=== PATIENT | male | born 1995 | race Caucasian/White ===

== ENCOUNTER 2017-12-15 10:48 | Emergency (ER) | payer OTHER ==
--- OUTSIDE RECORDS SUMMARY | 2017-12-15 11:13 | XMS REPORT ---
:1995 Author Organization [facility] Address [address] [place] [address] Care Team Providers Name Role Phone UNKNOWN, REFFERING Primary Care Provider Unavailable KRYSTIAN TIJERINA Unavailable Unavailable Problems This patient has no known problems. Allergies, Adverse Reactions, Alerts This patient has no known allergies or adverse reactions. Medications This patient has no known medications. Results Test Description Test Time Test Comments Text Results Atomic Results Result Comments Comprehensive Metabolic Panel 2017-02-08 22:10:00 Test Item Value Reference Range Comments Sodium (test code=NA) 141 mmol/L 135-145 Potassium (test code=K) 4.1 mmol/L 3.5-5.1 Chloride (test code=CL) 103 mmol/L 98-105 Carbon Dioxide (test 26 mmol/L 22-29 code=CO2) Glucose (test code=GLU) 97 mg/dL 70-115 Blood Urea Nitrogen (test 8 mg/dL 6-20 code=BUN) Creatinine (test code=CREAT) 0.9 mg/dL 0.7-1.2 Calcium (test code=CA) 9.4 mg/dL 8.3-10.5 Prot Total (test code=TP) 7.2 g/dL 6.4-8.3 Albumin (test code=ALB) 4.5 g/dL 3.5-5.2 A/G Ratio (test 1.7 Ratio code=AGRATIO) Globulin (test code=GLOB) 2.7 2.9-3.1 Bili Total (test code=TBIL) 0.3 mg/dL 0.1-0.9 Alk Phos (test code=APHOS) 79 U/L 40-129 AST (test code=AST) 16 U/L 1-40 ALT (test code=ALT) 9 U/L 1-41 BUN/Creatinine Ratio (test 8.9 code=BCRATIO) Anion Gap (test code=AGAP) 12 mmol/L 7-16 Estimated GFR (test >60 mL/min/1.73m2 eGFR (estimated Glomerular code=GFR) Filtration Rate) is an estimated value,calculated from the patient's serum creatinine using the MDRD equation.It is NOT the patient's actual GFR. The eGFR provides a more clinicallyuseful measure of kidney disease than serum creatinine alone.This calculation takes sex and race into account, if the informationis provided. If the race is not provided, and the patient isAfrican-Greek, multiply by 1.212. If sex is not provided, and thepatient is female, multiply by 0.742. Results for patients <18 years ofage have not been validated by the MDRD study and should be interpretedwith caution.eGFR Result Interpretation:eGFR > or=60 is in the Normal RangeeGFR < 60 may mean kidney diseaseeGFR < 15 may mean kidney failureRanges recommended by the National Kidney Foundation,http://nkdep.nih.go v [id number] 22:02:00 Test Item Value Reference Range Comments Amphetamine (test code=AMPH) Negative Negative For diagnostic purposes only, positive results should always be assessedin conjunctionwith the patient's medical history,clinical examination and otherfindings.To fulfill legal requirements, a more specific alternate chemical methodmust be used inorder to obtain a Confirmed analytical result. GC/MS is the preferred confirmatory method. Barbiturates (test code=LOKESH) Negative Negative Benzodiazepine (test Negative Negative code=CAROL) Cocaine (test code=COCA) Negative Negative Methadone (test code=MTHD) Negative Negative Opiates (test code=OPIA) Negative Negative PCP (test code=PCP) Negative Negative Propoxyphene (test Negative Negative code=PROPOX) THC (test code=THC) POSITIVE Negative Alcohol, Urine (test <0.01 g/dL 0.00-0.01 code=ETOHU) Urinalysis [id number] 21:45:00 Test Item Value Reference Range Comments Color (test code=COLOR) Yellow Yellow,Straw,Pl yellow Clarity (test code=CLAR) Clear Clear Specific [place] (test code=SPGR) 1.012 1.001-1.035 pH (test code=PH) 5.0 5.0-9.0 Ketone (test code=KET) Negative mg/dL Negative Glucose (test code=GLUCUR) Negative mg/dL Negative Protein (test code=PROT) Negative mg/dL Negative Bilirubin (test code=BILI) Negative mg/dL Negative Occult Blood (test code=UDOB) Negative Negative Urobilinogen (test code=UROB) 0.2 mg/dL 0.2-1.0 Nitrite (test code=NIT) Negative Negative Leuk Esterase (test code=LEUK) Negative Negative Micros Exam (test code=MEXAM) Not indicated CBC with [id number] 21:44:00 Test Item Value Reference Range Comments WBC (test code=WBC) 8.2 K/cumm 4.4-10.5 RBC (test code=RBC) 5.37 M/cumm 4.10-5.70 Hemoglobin (test code=HGB) 15.3 gm/dL 13.4-17.4 Hematocrit (test code=HCT) 45.6 % 38.7-52.0 MCV (test code=MCV) 85.0 fL 80-100 MCH (test code=MCH) 28.6 pg 27.0-32.5 MCHC (test code=MCHC) 33.6 g/dL 32.0-37.5 RDW (test code=RDW) 13.5 % 11.5-14.5 Platelet Count (test code=PLTCT) 182 K/cumm 140-440 MPV (test code=MPV) 8.1 fL Diff Method (test code=DIFFM) Auto Neutrophil (test code=NEUT) 77.4 % 36-70 Lymphocyte (test code=LYMPH) 13.7 % 12-44 Monocyte (test code=MONO) 7.4 % 0-11 Eosinophil (test code=EOS) 1.1 % 0-7 Basophil (test code=BASO) 0.4 % 0-2 Neutro Abs (test code=ANEUT) 6.4 K/cumm 1.6-7.4 Lymph Abs (test code=ALYMPH) 1.1 K/cumm 0.5-4.6 [place] Abs (test code=AMONO) 0.6 K/cumm 0.0-1.2 Eos Abs (test code=AEOS) 0.09 K/cumm 0.00-0.74 Baso Abs (test code=ABASO) 0.0 K/cumm 0.00-0.21
[2017-12-15 11:50] LABS: Absolute Lymphocytes (CBC) 0.5 K/uL (0.7-4.9); Absolute Monocytes 0.5 K/uL (0.1-1.3); Absolute Neutrophil 4.4 K/uL (1.8-8.0); Basophils % 0.6 % (0-1.3); Eosinophils % 1.2 % (0-4.4); Hematocrit 47.7 % (39.6-49.0); MCV 84.9 fL (80-100); MPV 9.3 fL (7.6-11.3); Monocytes % 9.7 % (3.3-12.3); RBC Red Blood Cell Count 5.62 M/uL (4.33-5.43)
[2017-12-15 12:09] LABS: Potassium 4.1 mmol/L (3.5-5.1)
--- NOTE | 2017-12-15 12:35 | RAD REPORT ---
EXAM DESCRIPTION: RAD - Chest Pa And Lat (2 Views) - 12/15/2017 12:28 pm CLINICAL HISTORY: MALAISE Asthma, smoker COMPARISON: Chest Pa And Lat (2 Views) dated 08/11/2016 FINDINGS: The lungs are clear. The heart is normal in size. No displaced fractures. IMPRESSION: No acute or concerning finding suspected.
--- NOTE | 2017-12-15 12:40 | RAD REPORT ---
EXAM DESCRIPTION: RAD - Abdomen Single View - 12/15/2017 12:30 pm CLINICAL HISTORY: ABD PAIN Pain COMPARISON: No comparisons FINDINGS: The bowel gas pattern is non-obstructive. No evidence of free air or pneumatosis. No suspi cious calcifications. No significant bony findings. IMPRESSION: Negative examination.
--- NOTE | 2017-12-15 12:42 | EDPHYS ---
Physician Documentation [facility] Name: Tomás Joseph Age: 22 yrs Sex: Male : 1995 Arrival Date: 12/15/2017 Time: 10:52 Bed 11 Private MD: Macho Lance ED Physician Volodymyr Bear HPI: 12/15 12:33 This 22 yrs old Male presents to ER via Wheelchair with complaints of Pain gs All Over. 12:33 Onset: The symptoms/episode began/occurred yesterday. Modifying factors: there are no gs obvious modifying factors. Associated signs and symptoms: Pertinent positives: arthralgias, chills, myalgias. Severity of symptoms: At their worst the symptoms were moderate in the emergency department the symptoms are unchanged. The patient has experienced similar episodes in the past, a few times. The patient has not recently seen a physician. Historical: - Allergies: 11:05 No Known Allergies; sv - Home Meds: 11:05 None [Active]; sv - PMHx: 11:05 Anxiety; Asthma; Bipolar disorder; Depression; sv - PSHx: 11:05 None; sv - Immunization history:: Adult Immunizations up to date. - Social history:: Smoking status: Patient uses tobacco products, smokes one-half pack cigarettes per day, Patient/guardian denies using alcohol, street drugs. - Ebola Screening: : No symptoms or risks identified at this time. ROS: 12:33 All other systems are negative. gs Exam: 12:33 Head/Face: Normocephalic, atraumatic. Eyes: Pupils equal round and reactive to light, gs extra-ocular motions intact. Lids and lashes normal. Conjunctiva and sclera are non-icteric and not injected. Cornea within normal limits. Periorbital areas with no swelling, redness, or edema. ENT: Nares patent. No nasal discharge, no septal abnormalities noted. Tympanic membranes are normal and external auditory canals are clear. Oropharynx with no redness, swelling, or masses, exudates, or evidence of obstruction, uvula midline. Mucous membranes moist. Neck: Trachea midline, no thyromegaly or masses palpated, and no cervical lymphadenopathy. Supple, full range of motion without nuchal rigidity, or vertebral point tenderness. No Meningismus. Cardiovascular: Regular rate and rhythm with a normal S1 and S2. No gallops, murmurs, or rubs. Normal PMI, no JVD. No pulse deficits. Respiratory: Lungs have equal breath sounds bilaterally, clear to auscultation and percussion. No rales, rhonchi or wheezes noted. No increased work of breathing, no retractions or nasal flaring. Abdomen/GI: Soft, non-tender, with normal bowel sounds. No distension or tympany. No guarding or rebound. No evidence of tenderness throughout. Back: No spinal tenderness. No costovertebral tenderness. Full range of motion. Skin: Warm, dry with normal turgor. Normal color with no rashes, no lesions, and no evidence of cellulitis. MS/ Extremity: Pulses equal, no cyanosis. Neurovascular intact. Full, normal range of motion. Neuro: Awake and alert, GCS 15, oriented to person, place, time, and situation. Cranial nerves II-XII grossly intact. Motor strength 5/5 in all extremities. Sensory grossly intact. Cerebellar exam normal. Normal gait. 12:33 Constitutional: The patient appears alert, awake. 12:33 Chest/axilla: Palpation: tenderness, that is mild, of the diaphragm, that partially reproduces the patient's complaints. Vital Signs: 10:56 BP 108 / 61; Pulse 81; Resp 18; Temp 99.5; Pulse Ox 97% ; Weight 61.23 kg; Height 5 ft. sv 8 in. (172.72 cm); Pain 7/10; 13:15 BP 109 / 79; Pulse 81; Resp 17; Temp 98.4; Pulse Ox 99% on R/A; aj 10:56 Body Mass Index 20.53 (61.23 kg, 172.72 cm) sv MDM: 11:17 Patient medically screened. 12:33 Differential diagnosis: viral Infection, bacterial infection, URI. Data reviewed: vital gs signs, nurses notes. Response to treatment: the patient's symptoms have markedly improved after treatment, and as a result, I will discharge patient. 12/15 11:25 Order name: CBC with Diff; Complete Time: 12:17 12/15 11:25 Order name: Basic Metabolic Panel; Complete Time: 12:17 12/15 11:25 Order name: CPK; Complete Time: 12:17 12/15 11:25 Order name: XRAY Chest Pa And Lat (2 Views); Complete Time: 12:40 12/15 11:25 Order name: Abdomen 1 View XRAY; Complete Time: 12:43 12/15 11:26 Order name: Flu; Complete Time: 12:17 Administered Medications: No medications were administered Disposition: 12/15/17 12:42 Discharged to Home. Impression: Upper abdominal pain, unspecified. - Condition is Stable. - Discharge Instructions: Abdominal Pain, Adult. - Prescriptions for Miralax 17 gram/dose Oral - take 1 packet by ORAL route once daily dilute powder in 8 ounces of water or juice; 1 bottle. Naprosyn 500 mg Oral Tablet - take 1 tablet by ORAL route 2 times per day As needed take with food; 30 tablet. - Work release form, Medication Reconciliation Form, Thank You Letter, Antibiotic Education, Prescription Opioid Use form. - Follow up: Emergency Department; When: 2 - 3 days; Reason: Re-evaluation by your physician. Signatures: Dispatcher [employer] EDGenesis Solis RN RN sv Myers, Amanda, RN RN aj Starr, Gregory, MD MD Corrections: (The following items were deleted from the chart) 13:17 12:42 12/15/2017 12:42 Discharged to Home. Impression: Upper abdominal pain, aj unspecified. Condition is Stable. Forms are Work release form, Medication Reconciliation Form, Thank You Letter, Antibiotic Education, Prescription Opioid Use. Follow up: Emergency Department; When: 2 - 3 days; Reason: Re-evaluation by your physician.
--- NOTE | 2017-12-15 12:42 | ER ---
Nurse's Notes [facility] Name: Tomás Joseph Age: 22 yrs Sex: Male : 1995 Arrival Date: 12/15/2017 Time: 10:52 Bed 11 Private MD: Macho Lance Diagnosis: Upper abdominal pain, unspecified Presentation: 12/15 10:56 Presenting complaint: Patient states: back pain and now has radiated to the bottom of sv both ribs, left leg and BUE that started a few days ago. Denies any injury. Transition of care: patient was not received from another setting of care. Onset of symptoms was December 12, 2017. Care prior to arrival: None. 10:56 Method Of Arrival: Wheelchair sv 10:56 Acuity: NIGEL 4 sv 13:16 Risk Assessment: Do you want to hurt yourself or someone else? Patient reports no aj desire to harm self or others. Initial Sepsis Screen: Does the patient meet any 2 criteria? No. Patient's initial sepsis screen is negative. Does the patient have a suspected source of infection? No. Patient's initial sepsis screen is negative. Historical: - Allergies: 11:05 No Known Allergies; sv - Home Meds: 11:05 None [Active]; sv - PMHx: 11:05 Anxiety; Asthma; Bipolar disorder; Depression; sv - PSHx: 11:05 None; sv - Immunization history:: Adult Immunizations up to date. - Social history:: Smoking status: Patient uses tobacco products, smokes one-half pack cigarettes per day, Patient/guardian denies using alcohol, street drugs. - Ebola Screening: : No symptoms or risks identified at this time. Screenin:40 Abuse screen: Denies threats or abuse. Denies injuries from another. Nutritional aj screening: No deficits noted. Tuberculosis screening: No symptoms or risk factors identified. Fall Risk None identified. Assessment: 11:37 General: Appears in no apparent distress. comfortable, Behavior is calm, cooperative. aj Pain: Complains of pain in back, chest, right arm, left arm, right leg and left leg. Neuro: Level of Consciousness is awake, alert, obeys commands, Oriented to person, place, time, situation, Appropriate for age. Respiratory: Airway is patent Respiratory effort is even, unlabored, Respiratory pattern is regular, symmetrical. Derm: Skin is intact, is healthy with good turgor, Skin is pink, warm \T\ dry. normal. Musculoskeletal: Circulation, motion, and sensation intact. Reports pain in back, chest, right arm, left arm, right leg and left leg. Vital Signs: 10:56 BP 108 / 61; Pulse 81; Resp 18; Temp 99.5; Pulse Ox 97% ; Weight 61.23 kg; Height 5 ft. sv 8 in. (172.72 cm); Pain 7/10; 13:15 BP 109 / 79; Pulse 81; Resp 17; Temp 98.4; Pulse Ox 99% on R/A; aj 10:56 Body Mass Index 20.53 (61.23 kg, 172.72 cm) sv ED Course: 10:52 Patient arrived in ED. rg4 10:52 Macho Lance DO is Private Physician. rg4 10:56 Arm band placed on right wrist. sv 11:04 Samira Bach RN is Primary Nurse. aj 11:05 Triage completed. sv 11:07 Volodymyr Bear MD is Attending Physician. gs 11:40 Patient has correct armband on for positive identification. aj 11:40 Initial lab(s) drawn, by me, sent to lab. aj 12:15 Patient moved to radiology via wheelchair. jb2 12:27 X-ray completed. Patient tolerated procedure well. jb2 12:28 Patient moved back from radiology. jb2 12:28 XRAY Chest Pa And Lat (2 Views) In Process Unspecified. EDMS 12:28 Abdomen 1 View XRAY In Process Unspecified. EDMS 13:16 No provider procedures requiring assistance completed. Patient did not have IV access aj during this emergency room visit. Administered Medications: No medications were administered Outcome: 12:42 Discharge ordered by . gs 13:16 Discharged to home ambulatory, with family. aj 13:16 Condition: good 13:16 Discharge instructions given to patient, family, Instructed on discharge instructions, follow up and referral plans. medication usage, Demonstrated understanding of instructions, follow-up care, medications, Prescriptions given X 2. 13:17 Patient left the ED. aj Signatures: Dispatcher [employer] EDGenesis Solis RN RN Samira Bach RN RN aj Buechter, Jesse jb2 Jordyn Christiansen rg4 Volodymyr Bear MD MD Corrections: (The following items were deleted from the chart) 11:05 10:56 Presenting complaint: Patient states: back pain and now has radiated to the sv bottom of both ribs, left leg and BUE that started a few days ago. 12:06 12:06 X-ray completed. Portable x-ray completed in exam room. Patient tolerated jb2 procedure well. jb2
== END 2017-12-15 13:17 | disposition home or self-care (01) ==
LOC: ER 10:48
DX: R10.10 Upper abdominal pain, unspecified (principal); J45.909 Unspecified asthma, uncomplicated; F17.210 Nicotine dependence, cigarettes, uncomplicated
CPT/HCPCS: 36415; 71046; 74018; 80048; 82550; 85025; 87804; 99283

== ENCOUNTER 2018-03-30 22:37 | Emergency (ER) | payer OTHER ==
--- OUTSIDE RECORDS SUMMARY | 2018-03-30 22:38 | XMS REPORT ---
:1995 [facility] Address [address] [place] [address] Care Team Providers Name Role Phone UNKNOWN, [...] race is not provided, and the patient isAfrican-Afghan, multiply by 1.212. If sex is not provided, and thepatient is female, multiply by 0.742. Results for patients <18 years ofage have not been validated by the MDRD study and should be interpretedwith caution.eGFR Result Interpretation:eGFR > or=60 is in the Normal RangeeGFR < 60 may mean kidney diseaseeGFR < 15 may mean kidney failureRanges recommended by the National Kidney Foundation,http://nkdep.nih.go v [id number] 22:02:00 Test Item Value Reference Range Comments [...] Urine (test <0.01 g/dL 0.00-0.01 code=ETOHU) Urinalysis [id number] 21:45:00 Test Item Value Reference Range Comments Color (test code=COLOR) Yellow Yellow,Straw,Pl yellow Clarity (test code=CLAR) Clear Clear Specific [place] (test code=SPGR) 1.012 1.001-1.035 pH (test code=PH) [...] Exam (test code=MEXAM) Not indicated CBC with [id number] 21:44:00 Test Item Value Reference Range Comments [...] Lymph Abs (test code=ALYMPH) 1.1 K/cumm 0.5-4.6 [place] Abs (test code=AMONO) 0.6 K/cumm 0.0-1.2 Eos Abs (test code=AEOS) 0.09 K/cumm 0.00-0.74 Baso Abs (test code=ABASO) 0.0 K/cumm 0.00-0.21
--- NOTE | 2018-03-31 00:49 | EDPHYS ---
Physician Documentation [facility] Name: Tomás Joseph Age: 22 yrs Sex: Male : 1995 Arrival Date: 03/30/2018 Time: 22:37 Bed 17 Private MD: ED Physician Latrell Moran HPI: 03/30 23:52 This 22 yrs old Male presents to ER via Ambulatory with complaints of back of rn head pain. 23:52 The patient complains of pain to the occiput. The patient describes the headache as rn "popping". Onset: The symptoms/episode began/occurred 1 hour(s) ago. Associated signs and symptoms: The patient has no apparent associated signs or symptoms, Pertinent negatives: altered mental status, fever, neck stiffness, paresthesias, Photophobia rash, vision changes, vision loss, vomiting, weakness, vertigo. Severity of symptoms: At its worst the pain was mild, in the emergency department the pain is unchanged. The symptoms are alleviated by nothing. the symptoms are aggravated by movement. The patient has experienced similar episodes in the past. Reports gets intermittent "popping" of head, feels deep, worse with turning head quickly, not in neck, no LOC/vomiting/fever. No recent trauma. NO seizure. Reports pain a little worse today and got pain twice in succession, read online of what it could be, got scared and came in. No focal neurological complaints. . Historical: - Allergies: 22:59 No Known Allergies; sr5 - Home Meds: 22:59 None [Active]; sr5 - PMHx: 22:59 Anxiety; Asthma; Bipolar disorder; Depression; sr5 - PSHx: 22:59 None; sr5 - Immunization history:: Adult Immunizations unknown. - Social history:: Smoking status: Patient uses tobacco products, denies chronic smoking, but will smoke occasionally. - Family history:: not pertinent. - Ebola Screening: : No symptoms or risks identified at this time. - Hospitalizations: : No recent hospitalization is reported. ROS: 23:52 Constitutional: Negative for fever, chills, and weight loss, Eyes: Negative for injury, rn pain, redness, and discharge, Neck: Negative for injury, pain, and swelling, Cardiovascular: Negative for chest pain, palpitations, and edema, Respiratory: Negative for shortness of breath, cough, wheezing, and pleuritic chest pain, Abdomen/GI: Negative for abdominal pain, nausea, vomiting, diarrhea, and constipation, MS/Extremity: Negative for injury and deformity, Skin: Negative for injury, rash, and discoloration, Neuro: Negative for weakness, numbness, tingling, and seizure. Exam: 23:52 Constitutional: This is a well developed, well nourished patient who is awake, alert, rn and in no acute distress. Head/Face: Normocephalic, atraumatic. Eyes: Pupils equal round and reactive to light, extra-ocular motions intact. Lids and lashes normal. Conjunctiva and sclera are non-icteric and not injected. Cornea within normal limits. Periorbital areas with no swelling, redness, or edema. ENT: Nares patent. No nasal discharge, Mucous membranes moist. Neck: Trachea midline, no thyromegaly or masses palpated, and no cervical lymphadenopathy. Supple, full range of motion without nuchal rigidity, or vertebral point tenderness. No Meningismus. Skin: Warm, dry with normal turgor. Normal color with no rashes, no lesions, and no evidence of cellulitis. MS/ Extremity: Pulses equal, no cyanosis. Neurovascular intact. Full, normal range of motion. Equal circumference. Neuro: Awake and alert, GCS 15, oriented to person, place, time, and situation. Cranial nerves II-XII grossly intact. Motor strength 5/5 in all extremities. Sensory grossly intact. Cerebellar exam normal. Normal gait. Vital Signs: 22:59 BP 129 / 74; Pulse 84; Resp 16; Temp 97.9; Pulse Ox 100% ; Weight 59.42 kg; Height 5 sr5 ft. 8 in. (172.72 cm); Pain /10; 03/31 00:45 BP 123 / 65; Pulse 85; Resp 16 S; Pulse Ox 100% on R/A; cc3 03/30 22:59 Body Mass Index 19.92 (59.42 kg, 172.72 cm) sr5 [place] Coma Score: 00:47 Eye Response: spontaneous(4). Verbal Response: oriented(5). Motor Response: obeys rn commands(6). Total: 15. MDM: 03/30 23:01 Patient medically screened. rn 03/31 00:47 Differential diagnosis: migraine, tension headache, vasomotor headache. Data reviewed: rn vital signs, nurses notes, radiologic studies, CT scan, and as a result, I will discharge patient. Counseling: I had a detailed discussion with the patient and/or guardian regarding: the historical points, exam findings, and any diagnostic results supporting the discharge/admit diagnosis, radiology results, the need for outpatient follow up, to return to the emergency department if symptoms worsen or persist or if there are any questions or concerns that arise at home. Special discussion: I discussed with the patient/guardian in detail that at this point there is no indication for admission to the hospital. It is understood, however, that if the symptoms persist or worsen the patient needs to return immediately for re-evaluation. 03/30 23:06 Order name: CT Head Brain wo Cont rn Administered Medications: No medications were administered Disposition: 03/31/18 00:49 Discharged to Home. Impression: Headache. - Condition is Stable. - Discharge Instructions: General Headache Without Cause. - Medication Reconciliation Form, Thank You Letter, Antibiotic Education, Prescription Opioid Use form. - Follow up: Private Physician; When: As needed; Reason: Recheck today's complaints, Re-evaluation by your physician. - Problem is new. - Symptoms have improved. Signatures: Dispatcher [employer] EDLatrell Menjivar MD MD rn Resecker, Sam, RN RN sr5 Lisset Alexander cc3 Corrections: (The following items were deleted from the chart) 00:58 00:49 03/31/2018 00:49 Discharged to Home. Impression: Headache. Condition is Stable. cc3 Forms are Medication Reconciliation Form, Thank You Letter, Antibiotic Education, Prescription Opioid Use. Follow up: Private Physician; When: As needed; Reason: Recheck today's complaints, Re-evaluation by your physician. Problem is new. Symptoms have improved. rn
--- NOTE | 2018-03-31 00:49 | ER ---
Nurse's Notes [facility] Name: Tomás Joseph Age: 22 yrs Sex: Male : 1995 Arrival Date: 03/30/2018 Time: 22:37 Bed 17 Private MD: Diagnosis: Headache Presentation: 03/30 22:57 Presenting complaint: Patient states: pain LEFT base of skull, "this pain happens every sr5 now and then, but today it happened twice". Reports turning heads towards the LEFT makes pain worse. Pt denies trauma. Transition of care: patient was not received from another setting of care. Onset of symptoms was March 30, 2018. 22:57 Method Of Arrival: Ambulatory sr5 22:57 Acuity: NIGEL 4 sr5 23:10 Risk Assessment: Do you want to hurt yourself or someone else? Patient reports no cc3 desire to harm self or others. Initial Sepsis Screen: Does the patient meet any 2 criteria? No. Patient's initial sepsis screen is negative. Does the patient have a suspected source of infection? No. Patient's initial sepsis screen is negative. Care prior to arrival: None. Triage Assessment: 22:59 General: Appears uncomfortable, Behavior is cooperative, appropriate for age. Pain: sr5 Complains of pain in left posterior aspect of neck and left lateral aspect of neck Pain currently is 9 out of 10 on a pain scale. Neuro: No deficits noted. Cardiovascular: No deficits noted. Respiratory: No deficits noted. Musculoskeletal: Reports pain at base of LEFT skull, worse with movement. Historical: - Allergies: 22:59 No Known Allergies; sr5 - Home Meds: 22:59 None [Active]; sr5 - PMHx: 22:59 Anxiety; Asthma; Bipolar disorder; Depression; sr5 - PSHx: 22:59 None; sr5 - Immunization history:: Adult Immunizations unknown. - Social history:: Smoking status: Patient uses tobacco products, denies chronic smoking, but will smoke occasionally. - Family history:: not pertinent. - Ebola Screening: : No symptoms or risks identified at this time. - Hospitalizations: : No recent hospitalization is reported. Screenin:10 Abuse screen: Denies threats or abuse. Denies injuries from another. Nutritional cc3 screening: No deficits noted. Tuberculosis screening: No symptoms or risk factors identified. Fall Risk Ambulatory Aid- None/Bed Rest/Nurse Assist (0 pts). Gait- Normal/Bed Rest/Wheelchair (0 pts) Mental Status- Oriented to own ability (0 pts). Assessment: 23:10 General: see triage assessment. cc3 03/31 00:20 Reassessment: Patient appears in no apparent distress at this time. Patient and/or cc3 family updated on plan of care and expected duration. Pain level reassessed. Patient is alert, oriented x 3, equal unlabored respirations, skin warm/dry/pink. Patient came back from CT scan department. 01:00 Reassessment: Patient appears in no apparent distress at this time. Patient and/or cc3 family updated on plan of care and expected duration. Pain level reassessed. Patient is alert, oriented x 3, equal unlabored respirations, skin warm/dry/pink. Dr. Moran discharged home the patient, no prescription was given. No IV cannula in situ. Patient left ER vitally stable and ambulatory with his friend. Vital Signs: 03/30 22:59 BP 129 / 74; Pulse 84; Resp 16; Temp 97.9; Pulse Ox 100% ; Weight 59.42 kg; Height 5 sr5 ft. 8 in. (172.72 cm); Pain /; 03/31 00:45 BP 123 / 65; Pulse 85; Resp 16 S; Pulse Ox 100% on R/A; cc3 03/30 22:59 Body Mass Index 19.92 (59.42 kg, 172.72 cm) sr5 What Cheer Coma Score: 00:47 Eye Response: spontaneous(4). Verbal Response: oriented(5). Motor Response: obeys rn commands(6). Total: 15. ED Course: 03/30 22:37 Patient arrived in ED. am2 22:58 Triage completed. sr5 22:59 Arm band placed on. sr5 23:01 Latrell Moran MD is Attending Physician. rn 23:10 Lisset Alexander is Primary Nurse. cc3 23:10 Patient has correct armband on for positive identification. Bed in low position. Call cc3 light in reach. Side rails up X 1. 23:[address] via wheelchair. kw1 03/31 00:00 CT Head Brain wo Cont In Process Unspecified. EDMS 00:01 CT completed. Patient tolerated procedure well. Patient moved back from CT. kw1 01:00 No provider procedures requiring assistance completed. Patient did not have IV access cc3 during this emergency room visit. Administered Medications: No medications were administered Outcome: 00:49 Discharge ordered by . rn 00:58 Patient left the ED. cc3 01:00 Discharged to home ambulatory, with friend. cc3 01:00 Condition: stable 01:00 Discharge instructions given to patient, Instructed on discharge instructions, follow up and referral plans. Demonstrated understanding of instructions, follow-up care. Signatures: Dispatcher [employer] EDMS Latrell Moran MD MD rn Marlene, Volodymyr RN RN sr5 Samira Peña am2 Ayleen Patel kw1 Lisset Alexander cc3 Corrections: (The following items were deleted from the chart) 06:38 00:30 BP 123 / 65; Pulse 85bpm; Resp 16bpm; Spontaneous; Pulse Ox 100% RA; cc3 cc3
--- NOTE | 2018-03-31 08:30 | RAD REPORT ---
EXAM DESCRIPTION: CT - Head Brain Wo Cont - 03/31/2018 6:54 am CLINICAL HISTORY: Headache COMPARISON: January 2017 TECHNIQUE: Computed axial tomography of the head was obtained. IV contrast was not requested. Prelim inary report was generated by [employer] and reviewed prior to dictation All CT scans are performed using dose optimization technique as appropriate and may include automated exposure control or mA/KV adjustment according to patient size. FINDINGS: An intracranial bleed is not seen . The ventricles are normal in caliber. No extra-axial fluid collection is noted. Fluid within the sinuses/ mastoids is not seen. IMPRESSION: No acute intracranial abnormality is seen. If patient's symptoms persist MRI of the bra in would be recommended.
== END 2018-03-31 00:58 | disposition home or self-care (01) ==
LOC: ER 22:37
DX: R51 Headache (principal); Z72.0 Tobacco use
CPT/HCPCS: 70450; 99284

== ENCOUNTER 2018-05-01 02:10 | Emergency (ER) | payer OTHER ==
--- OUTSIDE RECORDS SUMMARY | 2018-05-01 02:13 | XMS REPORT ---
:1995 Author Organization [facility] Address [address] [place] [address] Care Team Providers Name Role Phone UNKNOWN, [...] race is not provided, and the patient isAfrican-Swazi, multiply by 1.212. If sex is not provided, and thepatient is female, multiply by 0.742. Results for patients <18 years ofage have not been validated by the MDRD study and should be interpretedwith caution.eGFR Result Interpretation:eGFR > or=60 is in the Normal RangeeGFR < 60 may mean kidney diseaseeGFR < 15 may mean kidney failureRanges recommended by the National Kidney Foundation,http://nkdep.nih.go v [id number] 22:02:00 Test Item Value Reference Range Comments [...] Urine (test <0.01 g/dL 0.00-0.01 code=ETOHU) Urinalysis [id number] 21:45:00 Test Item Value Reference Range Comments Color (test code=COLOR) Yellow Yellow,Straw,Pl yellow Clarity (test code=CLAR) Clear Clear Specific [place] (test code=SPGR) 1.012 1.001-1.035 pH (test code=PH) [...] Exam (test code=MEXAM) Not indicated CBC with [id number] 21:44:00 Test Item Value Reference Range Comments [...] Lymph Abs (test code=ALYMPH) 1.1 K/cumm 0.5-4.6 [place] Abs (test code=AMONO) 0.6 K/cumm 0.0-1.2 Eos Abs (test code=AEOS) 0.09 K/cumm 0.00-0.74 Baso Abs (test code=ABASO) 0.0 K/cumm 0.00-0.21
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
== END 2018-05-01 03:03 | disposition home or self-care (01) ==
LOC: ER 02:10
DX: Z13.30 Encounter for screening examination for mental health and behavioral disorders, unspecified (principal); F17.210 Nicotine dependence, cigarettes, uncomplicated; Z86.59 Personal history of other mental and behavioral disorders
CPT/HCPCS: 99283

== ENCOUNTER 2018-05-19 15:05 | Emergency (ER) | payer OTHER ==
--- OUTSIDE RECORDS SUMMARY | 2018-05-19 15:07 | XMS REPORT ---
:1995 Author [facility] Address [address] [place] [address] Care Team Providers Name Role Phone UNKNOWN, [...] race is not provided, and the patient isAfrican-Argentine, multiply by 1.212. If sex is not provided, and thepatient is female, multiply by 0.742. Results for patients <18 years ofage have not been validated by the MDRD study and should be interpretedwith caution.eGFR Result Interpretation:eGFR > or=60 is in the Normal RangeeGFR < 60 may mean kidney diseaseeGFR < 15 may mean kidney failureRanges recommended by the National Kidney Foundation,http://nkdep.nih.go v [id number] 22:02:00 Test Item Value Reference Range Comments [...] Urine (test <0.01 g/dL 0.00-0.01 code=ETOHU) Urinalysis [id number] 21:45:00 Test Item Value Reference Range Comments Color (test code=COLOR) Yellow Yellow,Straw,Pl yellow Clarity (test code=CLAR) Clear Clear Specific [place] (test code=SPGR) 1.012 1.001-1.035 pH (test code=PH) [...] Exam (test code=MEXAM) Not indicated CBC with [id number] 21:44:00 Test Item Value Reference Range Comments [...] Lymph Abs (test code=ALYMPH) 1.1 K/cumm 0.5-4.6 [place] Abs (test code=AMONO) 0.6 K/cumm 0.0-1.2 Eos Abs (test code=AEOS) 0.09 K/cumm 0.00-0.74 Baso Abs (test code=ABASO) 0.0 K/cumm 0.00-0.21
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
[2018-05-19] MEDS ORDERED: ONDANSETRON 4 MG (ODT) TAB ONE (16:42)
[2018-05-19] MEDS ORDERED: ACETAMINOPHEN 325 MG TABLET ONE (16:42)
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
--- NOTE | 2018-05-19 16:58 | ER ---
Nurse's Notes [facility] Name: Tomás Joseph Age: 22 yrs Sex: Male : 1995 Arrival Date: 05/19/2018 Time: 15:08 Bed 25 Private MD: None, None Diagnosis: Contusion of unspecified part of head;Acute pansinusitis-Right frontal, ethmoid and maxillary sinuses Presentation: 05/19 15:27 Presenting complaint: Patient states: yesterday at work got hit with a door on right iw jew, today had a headache across forehead, and he forgot people's names and wants to get checked, denies LOC yesterday. Transition of care: patient was not received from another setting of care. Onset of symptoms was May 19, 2018. Risk Assessment: Do you want to hurt yourself or someone else? Patient reports no desire to harm self or others. Initial Sepsis Screen: Does the patient meet any 2 criteria? No. Patient's initial sepsis screen is negative. Does the patient have a suspected source of infection? No. Patient's initial sepsis screen is negative. Care prior to arrival: None. 15:27 Method Of Arrival: Ambulatory iw 15:27 Acuity: NIGEL 4 iw Historical: - Allergies: 15:29 NKA; iw - Home Meds: 15:29 None [Active]; iw - PMHx: 15:29 Anxiety; Asthma; Bipolar disorder; Depression; iw - PSHx: 15:29 None; iw - Immunization history:: Adult Immunizations not up to date. - Social history:: Smoking status: Patient uses tobacco products. - Ebola Screening: : Patient negative for fever greater than or equal to 101.5 degrees Fahrenheit, and additional compatible Ebola Virus Disease symptoms Patient denies exposure to infectious person Patient denies travel to an Ebola-affected area in the 21 days before illness onset No symptoms or risks identified at this time. Screenin:30 Abuse screen: Denies threats or abuse. Denies injuries from another. Nutritional sg screening: No deficits noted. Tuberculosis screening: No symptoms or risk factors identified. Never had TB. Fall Risk None identified. Assessment: 16:30 General: Appears in no apparent distress. comfortable, well groomed, well developed, sg well nourished, Behavior is calm, cooperative, appropriate for age. Pain: Complains of pain in face Quality of pain is described as aching. Neuro: No deficits noted. Neuro: Level of Consciousness is awake, alert, obeys commands, Oriented to person, place, time, situation, [employer]mediary are equal bilaterally Moves all extremities. Full function Gait is steady, Speech is normal, Facial symmetry appears normal, Pupils are PERRLA. Cardiovascular: Capillary refill is brisk in bilateral fingers Patient's skin is warm and dry. Respiratory: Airway is patent Respiratory effort is even, unlabored, Respiratory pattern is regular, symmetrical. GI: No deficits noted. No signs and/or symptoms were reported involving the gastrointestinal system. : No signs and/or symptoms were reported regarding the genitourinary system. EENT: No signs and/or symptoms were reported regarding the EENT system. Derm: Skin is pink, warm \T\ dry. Musculoskeletal: No signs and/or symptoms reported regarding the musculoskeletal system. Vital Signs: 15:29 BP 125 / 67; Pulse 88; Resp 16; Temp 98.6; Pulse Ox 100% on R/A; Weight 58.97 kg; iw Height 5 ft. 8 in. (172.72 cm); Pain 6/10; 15:29 Body Mass Index 19.77 (58.97 kg, 172.72 cm) iw ED Course: 15:08 Patient arrived in ED. mr 15:09 None, None is Private Physician. mr 15:29 Triage completed. iw 15:29 Arm band placed on. iw 15:52 Jason Banks PA is PHCP. cp 15:52 Jason Mondragon MD is Attending Physician. cp 15:56 Reji Cook, RE is Primary Nurse. sg 16:20 No provider procedures requiring assistance completed. Patient did not have IV access sg during this emergency room visit. 16:[address] via wheelchair. nj 16:30 CT completed. Patient tolerated procedure well. Patient moved back from CT. nj 16:30 Patient has correct armband on for positive identification. Bed in low position. Call sg light in reach. Side rails up X2. Pulse ox on. NIBP on. Lights dimmed. Warm blanket given. Head of bed. 16:32 CT Head Brain wo Cont In Process Unspecified. EDMS 16:32 CT Facial Bones W/O Con In Process Unspecified. EDMS Administered Medications: 16:40 Drug: Tylenol 650 mg Route: PO; sg 16:40 Drug: Zofran 4 mg Route: PO; sg 16:51 Follow up: Response: No adverse reaction sg Outcome: 16:58 Discharge ordered by MD. cp 17:10 Discharged to home ambulatory, with family. sg 17:10 Condition: good 17:10 Discharge instructions given to family, admitting clerk, Instructed on safety practices, Demonstrated understanding of instructions, follow-up care, medications, Prescriptions given X 2. 17:14 Patient left the ED. sg Signatures: Dispatcher [employer] EDReji Gray RN RN sg Rivera, Mary mr Williams, Irene, RN RN iw Page, Corey, PA PA Ced Gustafson
--- NOTE | 2018-05-19 16:58 | EDPHYS ---
Physician Documentation [facility] Name: Tomás Joseph Age: 22 yrs Sex: Male : 1995 Arrival Date: 05/19/2018 Time: 15:08 Bed 25 Private MD: None, None ED Physician Jason Mondragon HPI: 05/19 16:15 This 22 yrs old Male presents to ER via Ambulatory with complaints of cp Headache. 16:15 This 22 yrs old Male presents to ER via Ambulatory with complaints of cp Headache. 16:15 The patient complains of pain to the right latter-day and left latter-day and wraps around head.cp 16:15 Patient reports he was struck on right side of head and face by heavy door yesterday cp while at work. Since injury, patient reports difficulty with memory. No LOC and no vomiting since injury. Historical: - Allergies: 15:29 NKA; iw - Home Meds: 15:29 None [Active]; iw - PMHx: 15:29 Anxiety; Asthma; Bipolar disorder; Depression; iw - PSHx: 15:29 None; iw - Immunization history:: Adult Immunizations not up to date. - Social history:: Smoking status: Patient uses tobacco products. - Ebola Screening: : Patient negative for fever greater than or equal to 101.5 degrees Fahrenheit, and additional compatible Ebola Virus Disease symptoms Patient denies exposure to infectious person Patient denies travel to an Ebola-affected area in the 21 days before illness onset No symptoms or risks identified at this time. ROS: 16:20 Constitutional: Negative for chills, fever, poor PO intake. cp 16:20 Eyes: Negative for injury, pain, redness, and discharge. cp 16:20 Neck: Negative for pain with movement, pain at rest, stiffness, bony tenderness. 16:20 Cardiovascular: Negative for chest pain, edema, palpitations. 16:20 Respiratory: Negative for cough, shortness of breath, wheezing. 16:20 Abdomen/GI: Negative for abdominal pain, nausea, vomiting, and diarrhea. 16:20 Skin: Negative for cellulitis, rash. 16:20 Neuro: Positive for headache, Negative for altered mental status, dizziness, loss of consciousness, weakness. 16:20 All other systems are negative. Exam: 16:25 Constitutional: The patient appears in no acute distress, alert, awake, non-toxic, well cp developed, well nourished. 16:25 Head/face: Noted is swelling, that is mild, of the right latter-day, right temporal area, cp right side of forehead and right zygomatic area, tenderness, that is moderate. 16:25 Eyes: Pupils: equal, round, and reactive to light and accomodation, Extraocular movements: intact throughout, Conjunctiva: normal, no exudate, no injection, Sclera: no appreciated abnormality, Lids and lashes: appear normal, bilaterally. 16:25 ENT: External ear(s): are unremarkable, Ear canal(s): are normal, clear, TM's: dullness, bilaterally, Nose: is normal, Mouth: Lips: moist, Oral mucosa: pink and intact, moist, Posterior pharynx: is normal, airway is patent, no erythema, no exudate, Voice: is normal. 16:25 Neck: C-spine: vertebral tenderness, is not appreciated, crepitus, is not appreciated, ROM/movement: is normal, is supple, without pain, no range of motions limitations, no nuchal rigidity. 16:25 Chest/axilla: Inspection: normal, Palpation: is normal, no crepitus, no tenderness. 16:25 Cardiovascular: Rate: normal, Rhythm: regular. 16:25 Respiratory: the patient does not display signs of respiratory distress, Respirations: normal, no use of accessory muscles, no retractions, no splinting, labored breathing, is not present, Breath sounds: are clear throughout, no decreased breath sounds, no stridor, no wheezing. 16:25 Abdomen/GI: Inspection: abdomen appears normal, Palpation: abdomen is soft and non-tender, in all quadrants, rebound tenderness, is not appreciated, involuntary guarding, is not appreciated. 16:25 Back: pain, is absent, ROM is normal. 16:25 Neuro: Orientation: to person, place \T\ time. Mentation: lucid, able to follow commands, Cerebellar function: is grossly normal, Motor: moves all fours, strength is normal, Sensation: is normal, Gait: is steady, at a normal pace, without difficulty. Vital Signs: 15:29 BP 125 / 67; Pulse 88; Resp 16; Temp 98.6; Pulse Ox 100% on R/A; Weight 58.97 kg; iw Height 5 ft. 8 in. (172.72 cm); Pain 6/10; 15:29 Body Mass Index 19.77 (58.97 kg, 172.72 cm) MDM: 15:54 Patient medically screened. cp 16:57 Data reviewed: vital signs, nurses notes, radiologic studies, CT scan. cp 16:57 Differential diagnosis: sinusitis, concussion, intracranial bleed. Counseling: I had a cp detailed discussion with the patient and/or guardian regarding: the historical points, exam findings, and any diagnostic results supporting the discharge/admit diagnosis, radiology results, to return to the emergency department if symptoms worsen or persist or if there are any questions or concerns that arise at home. 05/19 16:12 Order name: CT Head Brain wo Cont; Complete Time: 16:52 05/19 16:12 Order name: CT Facial Bones W/O Con; Complete Time: 16:52 05/19 16:55 Interpretation: Report reviewed. cp Administered Medications: 16:40 Drug: Tylenol 650 mg Route: PO; 16:40 Drug: Zofran 4 mg Route: PO; 16:51 Follow up: Response: No adverse reaction sg Disposition: 17:30 Chart complete. 05/20 06:57 Co-signature as Attending Physician, Jason Mondragon MD I agree with the assessment and carmel plan of care. Disposition: 05/19/18 16:58 Discharged to Home. Impression: Contusion of unspecified part of head, Acute pansinusitis - Right frontal, ethmoid and maxillary sinuses. - Condition is Stable. - Discharge Instructions: Concussion, Adult, Head Injury, Adult, Sinusitis, Adult. - Prescriptions for Augmentin 875- 125 mg Oral Tablet - take 1 tablet by ORAL route every 12 hours for 10 days; 20 tablet. Zofran 4 mg Oral Tablet - take 1 tablet by ORAL route every 12 hours As needed; 20 tablet. - Work release form, Medication Reconciliation Form, Thank You Letter, Antibiotic Education, Prescription Opioid Use form. - Follow up: Private Physician; When: 2 - 3 days; Reason: Recheck today's complaints. - Problem is new. - Symptoms have improved. Signatures: Dispatcher [employer] Reji Shipman RN RN sg Anderson, Corey, MD MD cha Williams, Irene, RN RN iw Jason Banks PA PA cp Corrections: (The following items were deleted from the chart) 05/19 16: 16:15 Head Brain Wo Cont ordered. EDMS EDMS 17:14 16:58 05/19/2018 16:58 Discharged to Home. Impression: Contusion of unspecified part of sg head; Acute pansinusitis - Right frontal, ethmoid and maxillary sinuses. Condition is Stable. Forms are Medication Reconciliation Form, Thank You Letter, Antibiotic Education, Prescription Opioid Use. Follow up: Private Physician; When: 2 - 3 days; Reason: Recheck today's complaints. Problem is new. Symptoms have improved. cp 05/20 16:23 05/18 16:20 Constitutional: Negative for body aches, chills, fever, poor PO intake, cp cp 05/20 16:23 05/18 16:20 Eyes: Negative for injury, pain, redness, and discharge, cp cp
== END 2018-05-19 17:14 | disposition home or self-care (01) ==
LOC: ER 15:05
DX: S00.93XA Contusion of unspecified part of head, initial encounter (principal); J01.40 Acute pansinusitis, unspecified; W22.8XXA Striking against or struck by other objects, initial encounter; Y93.9 Activity, unspecified; Y92.89 Other specified places as the place of occurrence of the external cause; Z72.0 Tobacco use
CPT/HCPCS: 70450; 70486; 76377; 99284

== ENCOUNTER 2019-09-12 11:06 | Emergency (ER) | payer BC, OTHER ==
--- OUTSIDE RECORDS SUMMARY | 2019-09-12 11:08 | XMS REPORT | Continuity of Care Document ---
:1995 Author Organization [facility] Address [address] [place] [address] Phone Unavailable Care Team Providers Name Role Phone NO, PCP Primary Care Physician Unavailable Insurance Providers Guarantor Reji Carpentery Mar Address [address] [place] [address] Email [email or web address] Health Choice Excha Policy Number [id number] Subscriber's Name Tomás Carpenter Relationship 18 Self / Same As Patient Advance Directives Directive Response Recorded Date/Time Does the patient have an advance directive? No 11/18/18 2:52am If yes, is advance directive on file with [facility]? No 11/17/18 3:08pm If not on file with [facility] will patient provide a copy? No 11/17/18 3:08pm Do you have a Directive to Physician? No 11/17/18 3:08pm Do you have a Medical Power of Wrapper Off? No 11/17/18 3:08pm Do you have an out of hospital Do Not Resuscitate Order? No 11/17/18 3:08pm Do you have any special needs we should be aware of? No 11/17/18 3:08pm Do you have a support person here with you today? Yes 11/17/18 3:08pm Did patient receive Notice of Privacy Practices? Yes 11/17/18 3:08pm Did patient receive patient rights and responsibilities? Yes 11/17/18 3:08pm Problems Medical Problem Onset Date Status Traumatic leg injury Unknown Medications Current Home Medications Medication Dose Units Route Directions Days Qty Instructions Start Date Acetaminophen With 300 Mg Oral Every 4 Hours as Codeine (Tylenol needed for Mild With Codeine #3 Pain (1-3) Or Tablet) 1 Each Fever>100.8 Tablet Clindamycin Hcl 150 300 Mg Oral Twice A Day Mg Capsule Promethazine Hcl 25 Mg Oral Every 4 Hours as (Phenergan Supp*) needed for 25 Mg Supp Nausea Social History Smoking Status Start Date Stop Date Current every day smoker Hospital Discharge Instructions No hospital discharge instruction information available. Plan of Care Discharge Date 11/19/18 6:35pm Disposition HOME, SELF-CARE Instructions/Education Provided Post Operative Pain Prescriptions See Medication Section Referrals ERIN BOYD MD (Surgery) Order Date: 1 Week Entered Date: 11/19/2018 6:11pm Address: [address] [place] [id number] Additional Instructions/Education FOLLOW UP WITH DR. BOYD NEXT WEEK. BRING SUPPLIES TO APPOINTMENT TAKE MEDICATIONS PRESCRIBED Functional Status Query Response Date Recorded FUNCTIONAL STATUS . November 18, 2018 3:30pm Assistive Devices None November 18, 2018 2:55am Ambulation Ability Independent November 18, 2018 2:55am Toileting Ability Independent November 18, 2018 2:55am Allergies, Adverse Reactions, Alerts No known allergies. Immunizations No immunization information available. Vital Signs Acute Vital Signs Vital Response Date/Time Temperature (Fahrenheit) 96.5 degrees F (97.6 - 99.5) 11/19/2018 3:41pm Pulse Pulse Rate (adult) 78 bpm (60 - 90) 11/19/2018 3:41pm Respiratory Rate 20 bpm (12 - 24) 11/19/2018 3:41pm Blood Pressure 117/61 mm Hg 11/19/2018 3:41pm Height 5 ft 8 in 11/17/2018 2:06pm Weight 135 lb 11/17/2018 2:06pm Body Mass Index 20.5 kg/m^2 11/18/2018 2:52am Results Laboratory Results Test Name Result Units Flags Reference Collection Result Comments Date/Time Date/Time White Blood 11.74 x10e3/uL H 4.8-10.8 11/18/2018 11/18/2018 Count 5:05am 6:20am Red Blood Count 4.61 x10e6/uL 4.3-5.7 11/18/2018 11/18/2018 5:05am 6:20am Hemoglobin 13.2 g/dL L 14.0-18.0 11/18/2018 11/18/2018 5:05am 6:20am Hematocrit 39.1 % 38.2-49.6 11/18/2018 11/18/2018 5:05am 6:20am Mean 84.8 fL 81-99 11/18/2018 11/18/2018 Corpuscular 5:05am 6:20am Volume Mean 28.6 pg 28-32 11/18/2018 11/18/2018 Corpuscular 5:05am 6:20am Hemoglobin Mean 33.8 g/dL 31-35 11/18/2018 11/18/2018 Corpuscular 5:05am 6:20am Hemoglobin Concent Red Cell 13.2 % 11.7-14.4 11/18/2018 11/18/2018 Distribution 5:05am 6:20am Width Platelet Count 175 x10e3/uL 140-360 11/18/2018 11/18/2018 5:05am 6:20am Neutrophils (%) 88.3 % H 38.7-80.0 11/18/2018 11/18/2018 (Auto) 5:05am 6:20am Lymphocytes (%) 6.1 % L 18.0-39.1 11/18/2018 11/18/2018 (Auto) 5:05am 6:20am Monocytes (%) 5.1 % 4.4-11.3 11/18/2018 11/18/2018 (Auto) 5:05am 6:20am Eosinophils (%) 0.0 % 0.0-6.0 11/18/2018 11/18/2018 (Auto) 5:05am 6:20am Basophils (%) 0.1 % 0.0-1.0 11/18/2018 11/18/2018 (Auto) 5:05am 6:20am IM GRANULOCYTES 0.4 % 0.0-1.0 11/18/2018 11/18/2018 % 5:05am 6:20am Neutrophils # 10.4 H 2.1-6.9 11/18/2018 11/18/2018 (Auto) 5:05am 6:20am Lymphocytes # 0.7 L 1.0-3.2 11/18/2018 11/18/2018 (Auto) 5:05am 6:20am Monocytes # 0.6 0.2-0.8 11/18/2018 11/18/2018 (Auto) 5:05am 6:20am Eosinophils # 0.0 0.0-0.4 11/18/2018 11/18/2018 (Auto) 5:05am 6:20am Basophils # 0.0 0.0-0.1 11/18/2018 11/18/2018 (Auto) 5:05am 6:20am Absolute 0.05 x10e3/uL 0-0.1 11/18/2018 11/18/2018 Immature 5:05am 6:20am Granulocyte (auto Prothrombin 12.3 seconds 11.9-14.5 11/17/2018 11/17/2018 Time 2:31pm 3:48pm Prothromb Time 0.87 11/17/2018 11/17/2018 Oral Anticoagulant Therapy INR Values: International 2:31pm 3:48pm 1. Low Intensity Therapy 1.5 - 2.0 Ratio 2. Moderate Intensity Therapy 2.0 - 3.0 3. High Intensity Therapy(1) 2.5 - 3.5 4. High Intensity Therapy(2) 3.0 - 4.0 5. Panic Value INR > 5.0 Activated 32.0 seconds 23.8-35.5 11/17/2018 11/17/2018 Partial 2:31pm 3:48pm Thromboplast Time Sodium Level 135 mmol/L L 136-145 11/17/2018 11/17/2018 2:31pm 3:27pm Potassium Level 4.0 mmol/L 3.5-5.1 11/17/2018 11/17/2018 2:31pm 3:27pm Chloride Level 105 mmol/L 98-107 11/17/2018 11/17/2018 2:31pm 3:27pm Carbon Dioxide 23 mmol/L 22-29 11/17/2018 11/17/2018 Level 2:31pm 3:27pm Anion Gap 11.0 mmol/L 8-16 11/17/2018 11/17/2018 2:31pm 3:27pm Blood Urea 16 mg/dL 7-26 11/17/2018 11/17/2018 Nitrogen 2:31pm 3:27pm Creatinine 0.92 mg/dL 0.72-1.25 11/17/2018 11/17/2018 2:31pm 3:27pm BUN/Creatinine 17 6-25 11/17/2018 11/17/2018 Ratio 2:31pm 3:27pm Estimat > 60 ML/MIN 60- 11/17/2018 11/17/2018 Ranges were taken from the National Kidney Disease Education Glomerular 2:31pm 3:27pm Program and the National [employer] literature. Filtration Rate Reference ranges: 60 or greater: Normal 16-59 (for 3 consecutive months): Chronic kidney disease 15 or less: Kidney failure Glucose Level 93 mg/dL 74-118 11/17/2018 11/17/2018 2:31pm 3:27pm Calcium Level 9.4 mg/dL 8.4-10.2 11/17/2018 11/17/2018 2:31pm 3:27pm Procedures Procedure Status Date Provider(s) Incision and drainage Completed 11/17/18 ERIN BOYD MD Incision and drainage Active 11/18/18 ERIN BOYD MD Encounters Encounter Location Arrival/Admit Date Discharge/Depart Date Attending Provider Discharged [facility] 11/17/18 6:45pm 11/19/18 6:35pm [facility], Inpatient Patients [facility] ERIN BOYD [place]
[2019-09-12] MEDS ORDERED: ONDANSETRON 4 MG (ODT) TAB ONE (11:40)
--- NOTE | 2019-09-12 12:09 | EDPHYS ---
Physician Documentation [facility] Name: Tomás Joseph Age: 24 yrs Sex: Male : 1995 Arrival Date: 09/12/2019 Time: 11:13 Bed 8 Private MD: ED Physician Latrell Moran HPI: 09/11 11:39 This 24 yrs old Male presents to ER via Ambulatory with complaints of snw Vomiting. 11:39 The patient presents to the emergency department with vomiting. Onset: The snw symptoms/episode began/occurred suddenly. Possible causes: sick contacts, PUI for Covid19,. The patient has not experienced similar symptoms in the past. Historical: - Allergies: 11:21 NKA; ca1 - Home Meds: 11:21 None [Active]; ca1 - PMHx: 11:21 Anxiety; Asthma; Bipolar disorder; Depression; ca1 - PSHx: 11:21 None; ca1 - Immunization history:: Adult Immunizations up to date, Flu vaccine is up to date. - Social history:: Smoking status: Patient reports the use of cigarette tobacco products, smokes one-half pack cigarettes per day. ROS: 11:38 Constitutional: Negative for fever, chills, and weight loss, Eyes: Negative for injury, snw pain, redness, and discharge, ENT: Negative for injury, pain, and discharge, Neck: Negative for injury, pain, and swelling, Cardiovascular: Negative for chest pain, palpitations, and edema, Respiratory: Negative for shortness of breath, cough, wheezing, and pleuritic chest pain, Back: Negative for injury and pain, : Negative for injury, bleeding, discharge, and swelling, MS/Extremity: Negative for injury and deformity, Skin: Negative for injury, rash, and discoloration, Neuro: Negative for headache, weakness, numbness, tingling, and seizure, Psych: Negative for depression, anxiety, suicide ideation, homicidal ideation, and hallucinations. 11:38 Abdomen/GI: Positive for vomiting. Exam: 11:38 Constitutional: This is a well developed, well nourished patient who is awake, alert, snw and in no acute distress. Head/Face: Normocephalic, atraumatic. Eyes: Pupils equal round and reactive to light, extra-ocular motions intact. Lids and lashes normal. Conjunctiva and sclera are non-icteric and not injected. Cornea within normal limits. Periorbital areas with no swelling, redness, or edema. ENT: Nares patent. No nasal discharge, no septal abnormalities noted. Tympanic membranes are normal and external auditory canals are clear. Oropharynx with no redness, swelling, or masses, exudates, or evidence of obstruction, uvula midline. Mucous membranes moist. Neck: Trachea midline, no thyromegaly or masses palpated, and no cervical lymphadenopathy. Supple, full range of motion without nuchal rigidity, or vertebral point tenderness. No Meningismus. Chest/axilla: Normal chest wall appearance and motion. Nontender with no deformity. No lesions are appreciated. Cardiovascular: Regular rate and rhythm with a normal S1 and S2. No gallops, murmurs, or rubs. Normal PMI, no JVD. No pulse deficits. Respiratory: Lungs have equal breath sounds bilaterally, clear to auscultation and percussion. No rales, rhonchi or wheezes noted. No increased work of breathing, no retractions or nasal flaring. Abdomen/GI: Soft, non-tender, with normal bowel sounds. No distension or tympany. No guarding or rebound. No evidence of tenderness throughout. Back: No spinal tenderness. No costovertebral tenderness. Full range of motion. Skin: Warm, dry with normal turgor. Normal color with no rashes, no lesions, and no evidence of cellulitis. MS/ Extremity: Pulses equal, no cyanosis. Neurovascular intact. Full, normal range of motion. Neuro: Awake and alert, GCS 15, oriented to person, place, time, and situation. Cranial nerves II-XII grossly intact. Motor strength 5/5 in all extremities. Sensory grossly intact. Cerebellar exam normal. Normal gait. Psych: Awake, alert, with orientation to person, place and time. Behavior, mood, and affect are within normal limits. Vital Signs: 11:17 BP 125 / 75; Pulse 83; Resp 17 S; Temp 98.3(O); Pulse Ox 99% on R/A; Weight 61.23 kg ca1 (R); Height 5 ft. 10 in. (177.80 cm) (R); Pain 0/10; 11:17 Body Mass Index 19.37 (61.23 kg, 177.80 cm) ca1 MDM: 11:22 Patient medically screened. snw 12:08 Data reviewed: vital signs, nurses notes. Data interpreted: Pulse oximetry: on room air snw is 99 %. Interpretation: normal. Counseling: I had a detailed discussion with the patient and/or guardian regarding: the historical points, exam findings, and any diagnostic results supporting the discharge/admit diagnosis, the need for outpatient follow up, to return to the emergency department if symptoms worsen or persist or if there are any questions or concerns that arise at home. Special discussion: Based on the history and exam findings, there is no indication for further emergent testing or inpatient evaluation. I discussed with the patient/guardian the need to see the primary care provider for further evaluation of the symptoms. 09/11 11:27 Order name: [facility]. Lab Test snw 09/11 11:28 Order name: consult Order-Health dept snw Administered Medications: 12:25 Drug: Zofran (Ondansetron) 4 mg Route: PO; hb 12:41 Follow up: Response: Medication administered at discharge. Disposition: 13:22 Co-signature as Attending Physician, Latrell Moran MD. rn Disposition: 09/12/19 12:07 Discharged to Home. Impression: Vomiting, unspecified, Possible exposure to Covid19. - Condition is Stable. - Discharge Instructions: Nausea and Vomiting, Adult, Hand Washing, Rehydration, Adult. - Prescriptions for Zofran 4 mg Oral Tablet - take 1 tablet by ORAL route every 12 hours As needed; 20 tablet. - Medication Reconciliation Form, Thank You Letter, Antibiotic Education, Prescription Opioid Use form. - Follow up: Emergency Department; When: As needed; Reason: Worsening of condition. Follow up: Private Physician; When: 10 - 14 days; Reason: Recheck today's complaints, Continuance of care, Re-evaluation by your physician. - Notes: Avoid Motrin. Quarantine at home for recommended 2 weeks Signatures: Dispatcher [employer] EDMS Peri Castillo, REBECCA-Haile HOUSEKEEPING COORDINATOR-Csnw Latrell Moran MD MD rn Baxter, Heather, RN RN hb Acob, Cheryl, RN RN ca1 Corrections: (The following items were deleted from the chart) 12:57 12:07 09/12/2019 12:07 Discharged to Home. Impression: Vomiting, unspecified; Possible hb exposure to Covid19. Condition is Stable. Forms are Medication Reconciliation Form, Thank You Letter, Antibiotic Education, Prescription Opioid Use. Follow up: Emergency Department; When: As needed; Reason: Worsening of condition. Follow up: Private Physician; When: 10 - 14 days; Reason: Recheck today's complaints, Continuance of care, Re-evaluation by your physician. snw
--- NOTE | 2019-09-12 12:09 | ER ---
Nurse's Notes [facility] Name: Tomás Joseph Age: 24 yrs Sex: Male : 1995 Arrival Date: 09/12/2019 Time: 11:13 Bed 8 Private MD: Diagnosis: Vomiting, unspecified;Possible exposure to Covid19 Presentation: 09/11 11:17 Chief complaint: Patient states: Vomiting since today. Denies cough, congestion and ca1 fever. Reports GF was suspected of having the Covid and was tested. "My work wants me to be tested and cleared before I can return back to work". Coronavirus screen: Patient denies fever greater than 100.4F, cough, shortness of breath, or difficulty breathing. Proceed with normal triage process. Ebola Screen: Patient negative for fever greater than or equal to 101.5 degrees Fahrenheit, and additional compatible Ebola Virus Disease symptoms Patient denies exposure to infectious person. Patient denies travel to an Ebola-affected area in the 21 days before illness onset. No symptoms or risks identified at this time. Initial Sepsis Screen: Does the patient meet any 2 criteria? No. Patient's initial sepsis screen is negative. Does the patient have a suspected source of infection? No. Patient's initial sepsis screen is negative. Risk Assessment: Do you want to hurt yourself or someone else? Patient reports no desire to harm self or others. Onset of symptoms was September 12, 2019. 11:17 Method Of Arrival: Ambulatory ca1 11:17 Acuity: NIGEL 4 ca1 Historical: - Allergies: 11:21 NKA; ca1 - Home Meds: 11:21 None [Active]; ca1 - PMHx: 11:21 Anxiety; Asthma; Bipolar disorder; Depression; ca1 - PSHx: 11:21 None; ca1 - Immunization history:: Adult Immunizations up to date, Flu vaccine is up to date. - Social history:: Smoking status: Patient reports the use of cigarette tobacco products, smokes one-half pack cigarettes per day. Assessment: 12:04 Reassessment: [facility] called and informed pt's girlfriend Lissa Bethragini [birth year] is a PUI. Stated they will call us back. 12:11 Reassessment: [facility] called back and stated since the girlfriends result is not sv back yet they recommend the pt keep isolate himself. Vital Signs: 11:17 BP 125 / 75; Pulse 83; Resp 17 S; Temp 98.3(O); Pulse Ox 99% on R/A; Weight 61.23 kg ca1 (R); Height 5 ft. 10 in. (177.80 cm) (R); Pain 0/10; 11:17 Body Mass Index 19.37 (61.23 kg, 177.80 cm) ca1 ED Course: 11:13 Patient arrived in ED. mr 11:20 Triage completed. ca1 11:21 Arm band placed on right wrist. ca1 11:22 Peri Castillo F[facility]-C [facility]. snw 11:22 Latrell Moran MD is Attending Physician. snw 11:31 Eula Lyons, RN is Primary Nurse. hb 12:00 Patient has correct armband on for positive identification. Bed in low position. Call hb light in reach. Administered Medications: 12:25 Drug: Zofran (Ondansetron) 4 mg Route: PO; hb 12:41 Follow up: Response: Medication administered at discharge. hb Outcome: 12:07 Discharge ordered by . snw 12:56 Discharged to home ambulatory. hb 12:56 Condition: stable 12:56 Discharge instructions given to patient, Instructed on discharge instructions, follow up and referral plans. medication usage, Quarantine protocols Demonstrated understanding of instructions, follow-up care, medications, quarantine Prescriptions given X 1. 12:57 Patient left the ED. hb Addendum: 09/20/2019 11:44 Addendum: Other pt notified of negative COVID-19 swab results. Pt states that they were d m5 never symptomatic and that his job required that he get the test done. Pt notified of how to obtain copies of this record. Signatures: Kate Leary, RN RN Genesis Scherer RN Peri Castro FNP-C FNP-Tobinw Annabella Morrison mr Eula Lyons, RE GRIMALDO Janelle Marshall RN RN ca1
[2019-09-12 13:06] VITALS: BP 125/75; TEMP 98.3; O2SAT 99
== END 2019-09-12 12:57 | disposition home or self-care (01) ==
LOC: ER 11:06
DX: R11.10 Vomiting, unspecified (principal); Z03.818 Encounter for observation for suspected exposure to other biological agents ruled out; F17.210 Nicotine dependence, cigarettes, uncomplicated
CPT/HCPCS: 99283; U0002

== ENCOUNTER 2022-04-06 11:26 | Emergency (ER) | payer BC, SELFPAY ==
[2022-04-06] MEDS ORDERED: dexAMETHasone 10 MG/ML VIAL ONE (11:51)
--- NOTE | 2022-04-06 13:34 | EDPHYS ---
Physician Documentation [facility] Name: Tomás Joseph Age: 26 yrs Sex: Male : 1995 Arrival Date: 04/06/2022 Time: 11:28 Bed 11 Private MD: ED Physician Jason Mondragon HPI: 04/06 11:32 This 26 yrs old Male presents to ER via Ambulatory with complaints of Sore Throat, jmm Difficulty Swallowing, bodyaches/chills. 11:32 The patient presents with sore throat. Onset: The symptoms/episode began/occurred jmm gradually, 2 day(s) ago. Modifying factors: The symptoms are alleviated by nothing, the symptoms are aggravated by fluids, foods, swallowing. Associated signs and symptoms: Pertinent positives: fever. It is unknown whether or not the patient has had similar symptoms in the past. Historical: - Allergies: 11:32 NKA; tw2 - PMHx: 11:32 Anxiety; Asthma; Bipolar disorder; Depression; tw2 - Immunization history:: Adult Immunizations. - Social history:: Smoking status: . ROS: 11:32 Constitutional: Positive for fever. jmm 11:32 ENT: Positive for 11:32 ENT: Positive for sore throat. 11:32 All other systems are negative. Exam: 11:32 Constitutional: This is a well developed, well nourished patient who is awake, alert, jmm and in no acute distress. Head/Face: atraumatic. Eyes: EOMI, no conjunctival erythema appreciated 11:32 Neck: Trachea midline, Supple Chest/axilla: Normal chest wall appearance and motion. Cardiovascular: Regular rate and rhythm. No edema appreciated Respiratory: Normal respirations, no respiratory distress appreciated Abdomen/GI: Non distended Back: Normal ROM Skin: General appearance color normal 11:32 ENT: Posterior pharynx: erythema, that is moderate. 11:32 Musculoskeletal/extremity: ROM: intact in all extremities. 11:32 Skin: Appearance: Color: normal in color. 11:32 Neuro: Orientation: is normal, Mentation: is normal, Memory: is normal. 11:32 Psych: Behavior/mood is pleasant, cooperative. Vital Signs: 11:34 BP 118 / 80; Pulse 87; Resp 17; Temp 99(TE); Pulse Ox 100% on R/A; Weight 61.23 kg (R); tw2 13:30 BP 124 / 78; Pulse 82; Resp 16; Pulse Ox 99% on R/A; hb MDM: 11:39 Patient medically screened. [facility] 13:33 Data reviewed: vital signs, nurses notes. Counseling: I had a detailed discussion with kelly the patient and/or guardian regarding: the historical points, exam findings, and any diagnostic results supporting the discharge/admit diagnosis, the need for outpatient follow up, to return to the emergency department if symptoms worsen or persist or if there are any questions or concerns that arise at home. 04/06 11:31 Order name: Strep; Complete Time: 12:15 [facility] 04/06 11:31 Order name: Influenza Screen (a \\T\\ B); Complete Time: 12:14 [facility] 04/06 11:32 Order name: SARS-COV-2 RT PCR (Document "Date of Onset" if Symptomatic); Complete Time: [facility] 12:50 04/06 12:17 Order name: Throat Culture EDMA Administered Medications: 11:55 Drug: Decadron (dexamethasone) 10 mg Route: IM; Site: left deltoid; tw2 Disposition Summary: 04/06/22 13:34 Discharge Ordered Location: Home [facility] Condition: Stable [facility] Diagnosis - Acute pharyngitis, unspecified [facility] - Influenza [facility] Followup: [facility] - With: Private Physician - When: 2 - 3 days - Reason: Recheck today's complaints, Continuance of care, Re-evaluation by your physician Discharge Instructions: - Pharyngitis [facility] - Discharge Summary Sheet tw2 Forms: - Medication Reconciliation Form [facility] - Thank You Letter [facility] - Work release form tw2 - Antibiotic Education [facility] - Prescription Opioid Use [facility] Prescriptions: - Zithromax Z-Shahid 250 mg Oral Tablet - take 1 tablet by ORAL route as directed for 5 days Day 1 - take two (2) tablets [facility] one time. Day 2, 3, 4 , 5 take one (1) tablet once daily.; 6 tablet; Refills: 0, Product Selection Permitted - Tamiflu 75 mg Oral Capsule - take 1 tablet by ORAL route every 12 hours for 5 days; 10 tablet; Refills: 0, [facility] Product Selection Permitted Signatures: Dispatcher [employer] EDMS Giancarlo, Jason, MD MD carmel Mickail, Beltran, PA PA jmm Crooks, Adrianna, RN RN tw2
--- NOTE | 2022-04-06 13:34 | ER ---
Nurse's Notes [facility] Name: Tomás Joseph Age: 26 yrs Sex: Male : 1995 Arrival Date: 04/06/2022 Time: 11:28 Bed 11 Private MD: Diagnosis: Acute pharyngitis, unspecified;Influenza Presentation: 04/06 11:32 Note pt states "before we get started im going to get a water". tw2 11:32 Method Of Arrival: Ambulatory tw2 11:34 Chief complaint: Patient states: my throat has been hurting since , fever, tw2 chills, body aches and it hurts to swallow water or anything. Coronavirus screen: chills, congestion, sore throat, Client presents with at least one sign or symptom that may indicate coronavirus-19. Standard/surgical mask placed on the client. Provider contacted for isolation considerations. Ebola Screen: Patient denies travel to an Ebola-affected area in the 21 days before illness onset. Initial Sepsis Screen: Does the patient meet any 2 criteria? No. Patient's initial sepsis screen is negative. Does the patient have a suspected source of infection? No. Patient's initial sepsis screen is negative. Risk Assessment: Do you want to hurt yourself or someone else? Patient reports no desire to harm self or others. Onset of symptoms was April 06, 2022. 11:34 Acuity: NIGEL 4 tw2 Triage Assessment: 11:32 General: Appears in no apparent distress. obese, Behavior is calm, cooperative, tw2 appropriate for age. Pain: Complains of pain in uvula, left aspect of posterior pharynx and right aspect of posterior pharynx. EENT: Reports nasal congestion pain when swallowing. Respiratory: Airway is patent Respiratory effort is even, unlabored, Respiratory pattern is regular, symmetrical. Historical: - Allergies: 11:32 NKA; tw2 - PMHx: 11:32 Anxiety; Asthma; Bipolar disorder; Depression; tw2 - Immunization history:: Adult Immunizations. - Social history:: Smoking status: . Screenin:47 Abuse screen: Denies threats or abuse. Denies injuries from another. Nutritional hb screening: No deficits noted. Tuberculosis screening: No symptoms or risk factors identified. Fall Risk None identified. Assessment: 13:30 General: Appears in no apparent distress. Behavior is calm, cooperative. Neuro: Level hb of Consciousness is awake, alert, obeys commands, Oriented to person, place, time, situation. Cardiovascular: Patient's skin is warm and dry. Respiratory: Respiratory effort is even, unlabored, Respiratory pattern is regular, symmetrical. GI: No signs and/or symptoms were reported involving the gastrointestinal system. : No signs and/or symptoms were reported regarding the genitourinary system. EENT: Reports sore throat. Derm: Skin is pink, warm \\T\\ dry. Vital Signs: 11:34 BP 118 / 80; Pulse 87; Resp 17; Temp 99(TE); Pulse Ox 100% on R/A; Weight 61.23 kg (R); tw2 13:30 BP 124 / 78; Pulse 82; Resp 16; Pulse Ox 99% on R/A; hb ED Course: 11:28 Patient arrived in ED. am2 11:29 Beltran Ferguson PA is PHCP. [facility] 11:29 Jason Mondragon MD is Attending Physician. [facility] 11:31 Arm band placed on. tw2 11:35 Triage completed. tw2 11:41 Strep Sent. tw2 11:41 Influenza Screen (a \\T\\ B) Sent. tw2 11:47 Kelsie Fiore, RN is Primary Nurse. iw 13:47 Patient has correct armband on for positive identification. hb 13:48 No provider procedures requiring assistance completed. Patient did not have IV access hb during this emergency room visit. Administered Medications: 11:55 Drug: Decadron (dexamethasone) 10 mg Route: IM; Site: left deltoid; tw2 Medication: 13:49 VIS not applicable for this client. hb Outcome: 13:34 Discharge ordered by . [facility] 13:48 Discharged to home ambulatory. hb 13:48 Condition: stable 13:48 Discharge instructions given to patient, Instructed on discharge instructions, follow up and referral plans. medication usage, Demonstrated understanding of instructions, follow-up care, medications, Prescriptions given X 2. 13:49 Patient left the ED. hb Signatures: Beltran Ferguson PA PA Kelsie Bahena, RN RE Eula Lyons RN RN Adrianna Crooks RN RN tw2 Samira Peña am2
[2022-04-06 13:57] VITALS: TEMP 99
[2022-04-06 13:58] VITALS: BP 124/78; O2SAT 99
== END 2022-04-06 13:49 | disposition home or self-care (01) ==
LOC: ER 11:26
DX: J11.1 Influenza due to unidentified influenza virus with other respiratory manifestations (principal); Z20.822 Contact with and (suspected) exposure to COVID-19
CPT/HCPCS: 87070; 87081; 87804; 96372; 99283; J1100; U0003